=== PATIENT | male | born 1945 | race Caucasian/White ===

== ENCOUNTER 2016-11-21 01:20 | Inpatient (IN) | payer MEDICARE, OTHER ==
[~2016-11-21] VITALS: Ht 172.7 cm; Wt 77.1 kg
[2016-11-21 02:30] VITALS: BP 164/71; PULSE 51; RESP 17; TEMP 97.6; O2SAT 98
[2016-11-21] MEDS ORDERED: RISP0.5T2 PO (04:42)
[2016-11-21] MEDS ORDERED: LORA-373 PO (04:43)
[2016-11-21 05:36] VITALS: BP 126/78; PULSE 68; RESP 20; TEMP 97.5; O2SAT 98
[2016-11-21] MEDS: LOSARTAN 50 MG TAB PO SCH (09:38)
[2016-11-21] MEDS: PANTOPRAZOLE SOD 40 MG DELAYED RELEASE TAB PO SCH (09:38)
[2016-11-21] MEDS: FLUoxetine HCL 10 MG CAP PO SCH (09:46)
[2016-11-21] MEDS ORDERED: ALUMINUM/MAGNESIUM/SIMETH 30 ML CUP PO PRN (11:15)
--- NOTE | 2016-11-21 11:25 | HHI.HP ---
Provisional Diagnosis Admission Date Nov 21, 2016 at 01:20 [place] I. Mood disorder F 39 Certification of Person's Competence To Provide Express and Informed Consent I have personally examined Dell Martin , a person being served at [facility] on, Nov 21, 2016 11:13. Express and informed consent means consent voluntarily given in writing, by a competent person, after sufficient explanation and disclosure of the subject matter involved to enable the person to make a knowing and willful decision without any element of force, fraud, deceit, duress, or other form of constraint or coercion. This person is 18 years of age or older, is not now known to be incompetent to consent to treatment with a guardian advocate, and does not have a health care surrogate or proxy currently making medical treatment decisions. I have found this person to be one of the following: [] Competent to provide express and informed consent, as defined above, for voluntary admission to this facility and is competent to provide express and informed consent for treatment. He/she has the consistent capacity to make well reasoned, willful, and knowing decisions concerning his or her medical or mental health treatment. The person fully and consistently understands the purpose of the admission for examination/placement and is fully capable of personally exercising all rights assured under [place] [] Incompetent to provide express and informed consent to voluntary admission, and this is incompetent to provide express and informed consent to treatment. The person must be transferred to involuntary status and a petition for a guardian advocate filed with the Circuit Court. [X] Refusing to provide express and informed consent to voluntary admission but is competent to provide express and informed consent for treatment. The person must be discharged or transferred to involuntary status. Form shall be completed within 24 hours of a person's arrival at the receiving facility and filed in the clinical record of each person: 1. Admitted on a voluntary basis 2. Permitted to provide express and informed consent to his/her own treatment 3. Allowed to transfer from involuntary to voluntary status 4. Prior to permitting a person to consent to his or her own treatment after having been previously found incompetent to consent to treatment. History of Present Illness Capacity: Has Capacity HPI Patient is a [age] white male who initially went to [facility] complaining of depression suicidal ideation was Oneill acted at that facility, medically cleared at that facility and transported here under the Oneill act signed by AN illegible signature stating depression suicidal ideation. Depakote level at that facility 45.6, urine toxicology negative. At the present time patient sitting quietly in his room on 2500 he is alert oriented in all 4 spheres white male given the history of a multiple year problems with mood disorders being seen by various psychiatrists is has various hospitalizations some more recently. He sees a doctor ANDREIA the past 3 years within the past few months he has been changed from Trileptal and Cymbalta to Depakote and Prozac, he is also had vague perceptual problems has been on Respinol though he denies voices or visions at the present time. He is noted though increased anxiety depression with this of vague suicidal ideation to the point recalled friend of his in [place] who came down to visit leading to these events. At the present time patient history of suicidal ideation stating he would take the suicide pill if offered. He denies alcohol or drug use with this states the past significant some vague voices but denies voices at this time. Patient is single at this time does have an adult daughter that he does have her relationship with. There is a strong history mental health issues in his family his father committed suicide at a young age. He does have a sibling that may have some substance abuse issues also. He denies any physical and/or sexual abuse. 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 Management patient does meet criteria for involuntary psychiatric hospitalization at this time. I'll do first opinion requests a second opinion. I feel patient does have capacity to make decisions concerning treatment. We' ll continue his Depakote and Prozac an existing dosages we'll discontinue his Respinol add Abilify 5 mg the morning we will decrease his Ativan 2.5 mg twice a day when necessary check Depakote level over in the morning we will of hospitalist check his his medical condition also. Hopeless to be fairly short stay and was returned to his home to follow-up with his outpatient psychiatrist Review of Systems Except as stated in HPI: all other systems reviewed are Neg Past Psych History Psychological trauma history Denies physical or sexual abuse Violence risk - others (6 mos) Low Violence risk - self (6 mos) Actively suicidal Substance Abuse History Drugs/Alcohol past 12 months Denies Past Family Social History Uncoded Allergies: no know allergies (Allergy, 11/21/16) Past Medical History Patient medically cleared for [facility] Discontinued Reported Medications Lorazepam 0.5 Mg Tab0.5 Mg PO Q8H PRN (ANXIETY) Ref 0 11/21/16 Risperidone 0.5 Mg Tab0.5 Mg PO HS #30 TAB Ref 0 11/21/16 Current Medications Medications (Trade) Dose Ordered Sig/Zuleima Route Start Time Stop Time Status Last Admin (PROzac) 30 mg DAILY PO 11/21/16 09:00 11/21/16 09:46 (Cozaar) 50 mg DAILY PO 11/21/16 09:00 11/21/16 09:38 (Protonix) 40 mg DAILY PO 11/21/16 09:00 11/21/16 09:38 (Depakote Er) 500 mg HS PO 11/21/16 21:00 Family History Patient's father committed suicide mother had some type of mental health issues also though she lived to be Social History Patient single living by himself has an adult daughter Patient's Strengths (min. 2) Patient verbal they will express himself cooperative Physical Exam Patient seen screened for [facility] emergency department exam reviewed and agreed with vital signs vital signs blood pressure 126/78 pulse 68 respirations 20 Vital Signs Vital Signs Date Time Temp Pulse Resp B/P Pulse Ox O2 Delivery O2 Flow Rate FiO2 11/21/16 05:36 97.5 68 20 126/78 98 Mental Status Examination Alert oriented cooperative thin slender white male appears stated age sitting calmly with us with fair eye contact Appearance Clean neatly Speech: Unremarkable, Slow Orientation: x3 Memory: Unremarkable Thought Process: Logical Thought Content: Unremarkable, Obsessions (mildly) Hallucination Type: None Attention and Concentration: Good Suicidal Ideation: Yes (his active suicidal ideation would consider taking the suicide pill) Previous Suicide Attempts: No Homicidal Ideation: No Previous Homicide Attempts: No Insight: Fair Judgement: WNL Affect: Other (decreased range intensity) Mood: Euthymic (somewhat dysphoric and restricted) Motor Activity: Normal gait Assessment & Plan Problem List: (1) Mood disorder ICD Code: F39 Assessment & Plan Estimated LOS: 3-5 days patient doesn't meet criteria for acute inpatient consultation under the Oneill act I'll do first opinion requests second opinion. Will do medication adjustments as mentioned above hopefully if this will be a short stay return to his home and private psychiatrist Discharge Planning To be determined Request HC Surrog/Guard Advoc?: No Dada Novak MD Nov 21, 2016 11:25
[2016-11-21] MEDS: ARIPiprazole 5 MG TAB PO SCH (12:30)
[2016-11-21] MEDS: LORazepam 0.5 MG TAB PO PRN (12:30)
[2016-11-21] MEDS: hydrOXYzine HCL 50 MG TAB PO PRN (16:10)
[2016-11-21 18:41] VITALS: BP 167/93; PULSE 63; RESP 18; TEMP 98.2; O2SAT 99
[2016-11-21] MEDS: ACETAMINOPHEN 325 MG TAB PO PRN (18:47)
[2016-11-21] MEDS: DIVALPROEX SODIUM E.R. 500 MG TAB PO SCH (20:34)
[2016-11-21] MEDS: diphenhydrAMINE HCL 50 MG CAP PO PRN (20:43)
[2016-11-22 06:46] VITALS: BP 145/76; PULSE 61; RESP 18; TEMP 97.7; O2SAT 97
[2016-11-22 07:53] LABS: ANION GAP 8 MEQ/L (5-15); BICARBONATE 27.2 MEQ/L (21.0-32.0); BLOOD UREA NITROGEN 15 MG/DL (7-18); CHLORIDE 103 MEQ/L (98-107); GLOMERULAR FILTRATION RATE 90 ML/MIN (>89); HDL CHOLESTEROL 48.7 MG/DL (40.0-60.0); LDL CHOLESTEROL 68 MG/DL (0-99); POTASSIUM 3.8 MEQ/L (3.5-5.1); SODIUM (NA) 138 MEQ/L (136-145)
[2016-11-22] MEDS: ARIPiprazole 5 MG TAB PO SCH (09:00)
[2016-11-22] MEDS: FLUoxetine HCL 10 MG CAP PO SCH (09:48)
[2016-11-22] MEDS: LOSARTAN 50 MG TAB PO SCH (09:48)
[2016-11-22] MEDS: PANTOPRAZOLE SOD 40 MG DELAYED RELEASE TAB PO SCH (09:48)
[2016-11-22] MEDS: ACETAMINOPHEN 325 MG TAB PO PRN ×3 (10:18→21:22)
[2016-11-22 12:59] LABS: HEMOGLOBIN A1b 1.6 %; HEMOGLOBIN Ao 85.3 %; HEMOGLOBIN LA1C 1.9 %; HEMOGLOBIN P3 4.1 %
[2016-11-22] MEDS: LORazepam 0.5 MG TAB PO PRN (13:34)
[2016-11-22] MEDS: hydrOXYzine HCL 50 MG TAB PO PRN ×2 (13:34→18:48)
--- NOTE | 2016-11-22 13:36 | PD.CONS ---
HPI Service [facility] Consult Requested By Psychiatry team Reason for Consult Medical management Primary Care Physician No Primary Care Physician Diagnoses: History of Present Illness Patient is a 71-year-old white male who came in as a transfer from [facility] for depression and suicidal ideation. He was admitted to inpatient psychiatry unit under Oneill act for further evaluation. Consulted for medical management. Patient seen today. States he is doing well. Reports his major problem is medication adjustment for his psychological problems. Reports he has hypertension, and prediabetes but never started on medication for diabetes. He is taking losartan 50 mg daily but does not know if it is enough to control his blood pressure. He also reports GERD were and he takes Protonix for it daily. Denies pain and discomfort. Denies SOB/ dyspnea. Denies chest pain, palpitations, headaches, dizziness. Denies fevers, chills, n/v/d. Review of Systems Constitutional: DENIES: Fever, Chills, Change in appetite Endocrine: DENIES: Heat/cold intolerance Eyes: DENIES: Blurred vision, Eye pain Other Negative except for what is noted on history of present illness. Past Family Social History Allergies: Uncoded Allergies: no know allergies (Allergy, Unknown, 11/21/16) Past Medical History Hypertension GERD Prediabetes Skin cancer basal cell Past Surgical History Rhinoplasty Inguinal hernia repair Cholecystectomy Anal fissure repair Reported Medications Lorazepam 0.5 mg Risperidone 0.5 mg Losartan 50 mg Active Ordered Medications Current Medications Medications (Trade) Dose Ordered Sig/Zuleima Route Start Time Stop Time Status Last Admin (PROzac) 30 mg DAILY PO 11/21/16 09:00 11/22/16 09:48 (Cozaar) 50 mg DAILY PO 11/21/16 09:00 11/22/16 09:48 (Protonix) 40 mg DAILY PO 11/21/16 09:00 11/22/16 09:48 (Depakote Er) 500 mg HS PO 11/21/16 21:00 11/21/16 20:34 (Benadryl) 50 mg HS PRN PO 11/21/16 11:15 11/21/16 20:43 (Tylenol) 650 mg Q4H PRN PO 11/21/16 11:15 11/22/16 10:18 (Milk Of Magnesia Liq) 30 ml DAILY PRN PO 11/21/16 11:15 (Mag-Al Plus Susp Liq) 30 ml Q6H PRN PO 11/21/16 11:15 (Atarax) 50 mg Q6H PRN PO 11/21/16 11:15 11/22/16 13:34 (Abilify) 5 mg DAILY PO 11/21/16 12:00 11/21/16 12:30 (Ativan) 0.5 mg Q12HR PRN PO 11/21/16 11:15 11/22/16 13:34 Family History Father heart problem, aortic aneurysm Mother hypertension Sister skin cancer Social History Patient is . He has 2 daughters in [place]. Denies alcohol use Denies tobacco use Denies illicit drug use Physical Exam Vital Signs Vital Signs Date Time Temp Pulse Resp B/P Pulse Ox O2 Delivery O2 Flow Rate FiO2 11/22/16 06:46 97.7 61 18 145/76 97 11/21/16 19:47 20 11/21/16 18:41 98.2 63 18 167/93 99 Physical Exam GENERAL: This is a well-nourished, well-developed patient, in no apparent distress. SKIN: No rashes, ecchymoses or lesions. Cool and dry. HEAD: Atraumatic. Normocephalic. No temporal or scalp tenderness. EYES: Pupils equal round and reactive. No scleral icterus. No injection or drainage. ENT: Nose without bleeding. Throat without erythema. Uvula midline. Airway patent. NECK: Trachea midline. No JVD or lymphadenopathy. Supple, nontender, no meningeal signs. CARDIOVASCULAR: Regular rate and rhythm without murmurs, gallops, or rubs. RESPIRATORY: Clear to auscultation. Breath sounds equal bilaterally. No wheezes , rales, or rhonchi. GASTROINTESTINAL: Abdomen soft, non-tender, nondistended. No hepato-splenomegaly , or palpable masses. No guarding. Bowel sounds active 4 MUSCULOSKELETAL: Extremities without clubbing, cyanosis, or edema. No joint tenderness, effusion, or edema noted. No calf tenderness. Negative Homans sign bilaterally. NEUROLOGICAL: Awake and alert. Motor and sensory grossly within normal limits. Focal neuro deficit Normal speech. Laboratory Laboratory Tests Test 11/22/16 06:39 Sodium Level 138 Potassium Level 3.8 Chloride Level 103 Carbon Dioxide Level 27.2 Anion Gap 8 Blood Urea Nitrogen 15 Creatinine 0.84 Estimat Glomerular Filtration 90 Rate Random Glucose 93 Calcium Level 8.7 Triglycerides Level 71 Cholesterol Level 131 LDL Cholesterol 68 HDL Cholesterol 48.7 Cholesterol/HDL Ratio 2.68 Valproic Acid (Depakene) Level 31 Result Diagram: 11/22/16 0639 Assessment and Plan Problem List: (1) Mood disorder ICD Code: F39 Status: Acute (2) Pre-diabetes ICD Code: R73.03 Status: Acute (3) Diabetes mellitus screening ICD Code: Z13.1 Status: Acute (4) HTN (hypertension) ICD Code: I10 Status: Chronic Assessment and Plan Patient is 71-year-old male who came in to the hospital under Oneill transferred from [facility] for suicidal ideation and medication adjustments. Now admitted to inpatient psychiatry unit for further evaluation. Consulted for medical management. Suicidal ideation, mood disorder - managed by psychiatry team HTN - losartan 50 mg by mouth daily, clonidine when necessary - Monitor BP trend. Improving BP today 145/76 Prediabetes, DM screening - Hemoglobin A1c 5.5 - Patient without diabetes - Continue with regular diet Labs have been reviewed BMP unremarkable, lipid profile within normal, hemoglobin A1C 5.5 Thank you for this consultation. We will follow patient with you. Written by Valorie Altman, acting as scribe for Dr. Saldana on 11/22/16 at 15: 06. The documentation accurately reflects the work performed [id number] by me on at 15:06. Code Status Full code Discussed Condition With Patient, nursing Valorie Adame Nov 22, 2016 13:36 George Phillips MD Dec 02, 2016 02:07
--- NOTE | 2016-11-22 14:43 | PD.CONS ---
Provisional Diagnosis Admission Date Nov 21, 2016 at 01:20 [place] I. 1. Mood disorder [place] II. Deferred [place] V. GAF is 30 presently History of Present Illness Service Psychiatry Consult Requested By Dr. Novak Reason for Consult Second opinion Primary Care Physician No Primary Care Physician HPI From Dr. Novak's H&P: Patient is a [age] white male who initially went to [facility] complaining of depression suicidal ideation was Oneill acted at that facility, medically cleared at that facility and transported here under the Oneill act signed by AN illegible signature stating depression suicidal ideation. Depakote level at that facility 45.6, urine toxicology negative. At the present time patient sitting quietly in his room on 2500 he is alert oriented in all 4 spheres white male given the history of a multiple year problems with mood disorders being seen by various psychiatrists is has various hospitalizations some more recently. He sees a doctor ANDREIA the past 3 years within the past few months he has been changed from Trileptal and Cymbalta to Depakote and Prozac, he is also had vague perceptual problems has been on Respinol though he denies voices or visions at the present time. He is noted though increased anxiety depression with this of vague suicidal ideation to the point recalled friend of his in [place] who came down to visit leading to these events. At the present time patient history of suicidal ideation stating he would take the suicide pill if offered. He denies alcohol or drug use with this states the past significant some vague voices but denies voices at this time. Patient is single at this time does have an adult daughter that he does have her relationship with. There is a strong history mental health issues in his family his father committed suicide at a young age. He does have a sibling that may have some substance abuse issues also. He denies any physical and/or sexual abuse. 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 I'll do first opinion requests a second opinion. I feel patient does have capacity to make decisions concerning treatment. We' ll continue his Depakote and Prozac an existing dosages we'll discontinue his Respinol add Abilify 5 mg the morning we will decrease his Ativan 2.5 mg twice a day when necessary check Depakote level over in the morning we will of hospitalist check his his medical condition also. Hopeless to be fairly short stay and was returned to his home to follow-up with his outpatient psychiatrist On my evaluation today: Patient seen and examined. Chart reviewed. Case discussed with RN. Patient is newly transferred to 2700 unit, although he was no behavioral problem on the 2500 unit from which he came. On my examination today, the patient is exceedingly anxious, bordering on hysterical. It is difficult to get much of a meaningful history from the patient for this reason. Nonetheless, he is able to say he went into [facility] because he was struggling with ego dystonic intrusive thoughts to hurt nonspecific others. He denies any urge to hurt other people, nor does he have any specific victim in mind. No suicidal ideation. No AVH. Patient is somewhat dysphoric but I suspect this is situational. Past psychiatric history: Patient reports a prior diagnosis of bipolar disorder type II. He reports that he follows with Dr. Schreiber. He reports that he was voluntarily psychiatrically hospitalized in 2012. He denies a history of suicide attempts. Family history: Patient reports that his father struggled with depression throughout his life and completed suicide at age 72. His mother had bipolar illness. His sister also has some sort of mental illness diagnosis. Chemical dependency history: Patient denies a history of abuse of drugs or alcohol. Social history: Patient begins to say that he lives alone with a dog before devolving into a state of extreme anxiety related to his circumstance on the 2700 unit. It is difficult to get much in the way of meaningful social history for this reason. Review of Systems Other No reported physical complaints today. Past Family Social History Uncoded Allergies: no know allergies (Allergy, Unknown, 11/21/16) Past Medical History See electronic medical record Discontinued Reported Medications Lorazepam 0.5 Mg Tab0.5 Mg PO Q8H PRN (ANXIETY) Ref 0 11/21/16 Risperidone 0.5 Mg Tab0.5 Mg PO HS #30 TAB Ref 0 11/21/16 Current Medications Medications (Trade) Dose Ordered Sig/Zuleima Route Start Time Stop Time Status Last Admin (PROzac) 30 mg DAILY PO 11/21/16 09:00 11/22/16 09:48 (Cozaar) 50 mg DAILY PO 11/21/16 09:00 11/22/16 09:48 (Protonix) 40 mg DAILY PO 11/21/16 09:00 11/22/16 09:48 (Depakote Er) 500 mg HS PO 11/21/16 21:00 11/21/16 20:34 (Benadryl) 50 mg HS PRN PO 11/21/16 11:15 11/21/16 20:43 (Tylenol) 650 mg Q4H PRN PO 11/21/16 11:15 11/22/16 10:18 (Milk Of Magnesia Liq) 30 ml DAILY PRN PO 11/21/16 11:15 (Mag-Al Plus Susp Liq) 30 ml Q6H PRN PO 11/21/16 11:15 (Atarax) 50 mg Q6H PRN PO 11/21/16 11:15 11/22/16 13:34 (Abilify) 5 mg DAILY PO 11/21/16 12:00 11/21/16 12:30 (Ativan) 0.5 mg Q12HR PRN PO 11/21/16 11:15 11/22/16 13:34 Family History See above Social History See above Patient's Strengths (min. 2) Intelligent. Verbally fluent. Physical Exam A physical examination was completed at the outside hospital and the patient was medically cleared. On my examination today, the patient appears to be in no acute physical distress. No abnormal motor movements noted except he is somewhat generally tremulous secondary to anxiety. Labs and vital signs reviewed. Vital Signs Vital Signs Date Time Temp Pulse Resp B/P Pulse Ox O2 Delivery O2 Flow Rate FiO2 11/22/16 06:46 97.7 61 18 145/76 97 Lab Results Item Value Date Time Sodium Level 138 MEQ/L 11/22/16 0639 Potassium Level 3.8 MEQ/L 11/22/16 0639 Chloride Level 103 MEQ/L 11/22/16 0639 Carbon Dioxide Level 27.2 MEQ/L 11/22/16 0639 Blood Urea Nitrogen 15 MG/DL 11/22/16 0639 Creatinine 0.84 MG/DL 11/22/16 0639 Hemoglobin A1c 5.5 % 11/22/16 0639 Valproic Acid (Depakene) Level 31 MCG/ML L 11/22/16 0639 Mental Status Examination Speech: Pressured (due to anxiety) Orientation: x3 Memory: Unremarkable Thought Process: Logical Thought Content: Obsessions Hallucination Type: None Attention and Concentration: Good Suicidal Ideation: No Previous Suicide Attempts: No Homicidal Ideation: No (but ego dystonic thoughts to hurt others) Previous Homicide Attempts: No Insight: Fair Judgement: WNL Affect: Anxious (extreme) Mood: Anxious Assessment & Plan Problem List: (1) Mood disorder ICD Code: F39 Assessment & Plan Given the circumstances of patient's presentation here and his presentation on my examination today, I concur with Dr. Novak that the patient meets criteria for involuntary psychiatric hospitalization under the Oneill act. I completed the second opinion paperwork. Patient is presently extremely anxious on the 2700 unit. I have discussed the case with Dr. Novak who concurs it is most appropriate to have the patient returned to the 2500 unit, and I have placed this order. Discharge Planning Per Dr. Novak. Request [facility]/Guard Advoc?: No Daniel Sosa MD Nov 22, 2016 14:42
--- NOTE | 2016-11-22 15:03 | HHI.PYPN ---
Subjective Remarks Patient discussed with treatment team and miss Anna Pittman patient's friend and power of ball rolling machine operator lives in [place]. Was come down to help with him. Patient seen on unit prior to the decision to attempt to transfer him to 2700 unit. And that time he was anxious nervous when somewhat afraid and vigilant. After I spoke with him the initial decision was made for this transfer. Was also seen by Dr. Sosa for second opinion petition assessment. He noted and I did agree that this appeared to be a somewhat inappropriate transfer from 25[address] 700 unit we did discuss this with the nursing staff and they agree that we should cancel the transfer and to the patient 2500 units will be continued monitored by us Review of Systems Except as stated in HPI: all other systems reviewed are Neg Objective Alert: Yes [place]: Person, Place, Date Mood: Agitated, Anxious Affect: Labile Memory Intact: Comment Hallucinations: Other (poor) Delusions: No Delusion Type: Other (vigilant) Suicidal: Ideation (denies) Homicidal: Ideation (denies) Insight/Judgement Poor Labs Test 11/22/16 06:39 Sodium Level 138 MEQ/L Potassium Level 3.8 MEQ/L Chloride Level 103 MEQ/L Carbon Dioxide Level 27.2 MEQ/L Anion Gap 8 MEQ/L Blood Urea Nitrogen 15 MG/DL Creatinine 0.84 MG/DL Estimat Glomerular Filtration 90 ML/MIN Rate Random Glucose 93 MG/DL Hemoglobin A1c 5.5 % Calcium Level 8.7 MG/DL Triglycerides Level 71 MG/DL Cholesterol Level 131 MG/DL LDL Cholesterol 68 MG/DL HDL Cholesterol 48.7 MG/DL Cholesterol/HDL Ratio 2.68 RATIO Valproic Acid (Depakene) Level 31 MCG/ML Vitals/IOs Vital Signs Date Time Temp Pulse Resp B/P Pulse Ox O2 Delivery O2 Flow Rate FiO2 11/22/16 06:46 97.7 61 18 145/76 97 Assessment & Plan Problem List: (1) Mood disorder ICD Code: F39 Assessment & Plan Estimated LOS: days patient depressed anxious somewhat irritable at this time, did refuse his Abilify this morning we'll continue to encourage compliance with medication Justification for Cont. Inpt. At this time there patient may severely decompensate if placed in a lower level of care Discharge Planning To be determined Request HC Surrog/Guard Advoc?: No Dada Novak MD Nov 22, 2016 15:03
[2016-11-22 18:39] VITALS: BP 158/77; PULSE 53; RESP 18; TEMP 98; O2SAT 97
[2016-11-22] MEDS: DIVALPROEX SODIUM E.R. 500 MG TAB PO SCH (21:21)
[2016-11-22] MEDS: diphenhydrAMINE HCL 50 MG CAP PO PRN (21:22)
[2016-11-23 05:31] VITALS: BP 156/75; PULSE 60; RESP 18; TEMP 98.4; O2SAT 97
[2016-11-23] MEDS: MAGNESIUM HYDROXIDE SUSP 30 ML CUP PO PRN (06:26)
[2016-11-23] MEDS: LORazepam 0.5 MG TAB PO PRN ×2 (09:27→21:31)
[2016-11-23] MEDS: LOSARTAN 50 MG TAB PO SCH (09:27)
[2016-11-23] MEDS: PANTOPRAZOLE SOD 40 MG DELAYED RELEASE TAB PO SCH (09:27)
[2016-11-23] MEDS: FLUoxetine HCL 10 MG CAP PO SCH (09:28)
[2016-11-23] MEDS: ARIPiprazole 5 MG TAB PO SCH (09:28)
--- NOTE | 2016-11-23 11:07 | HHI.PYPN ---
Subjective Remarks Patient seen in room with nurse Deya, patient complains of "nervous wreck" while patient denies suicidality homicidality or voices he states he has thoughts at times wanting to hurt himself or hurt others. Though he has some reality testing related to it. Patient is markedly anxious with us with his speech showing some significant stuttering. Is somewhat agitated. Patient Depakote level drawn yesterday came back at 31 will increase Depakote to 750 mg at bedtime check blood level on 11/26, we'll continue other medications no change this component of dependency and passive aggressiveness with this gentleman. He appears to be relying significant his lady friend from [place] to find a placement and to do various responsibilities for him Review of Systems Except as stated in HPI: all other systems reviewed are Neg Objective Alert: Yes [place]: Person, Place, Date Mood: Agitated, Anxious Affect: Labile Memory Intact: Comment Hallucinations: Other (poor) Delusions: No Delusion Type: Other (vigilant) Suicidal: Ideation (denies) Homicidal: Ideation (denies) Insight/Judgement Poor Vitals/IOs Vital Signs Date Time Temp Pulse Resp B/P Pulse Ox O2 Delivery O2 Flow Rate FiO2 11/23/16 05:31 98.4 60 18 156/75 97 Intake and Output 11/22/16 11/22/16 11/23/16 08:00 16:00 00:00 Intake Total 480 ml 990 ml Balance 480 ml 990 ml Assessment & Plan Problem List: (1) Mood disorder ICD Code: F39 Assessment & Plan Estimated LOS: days patient continues depressed and anxious with vague thoughts of suicide and/or homicide Justification for Cont. Inpt. At this time patient would significantly decompensated placed in a lower level of care Discharge Planning To be determined Request HC Surrog/Guard Advoc?: No Dada Novak MD Nov 23, 2016 11:07
[2016-11-23] MEDS: hydrOXYzine HCL 50 MG TAB PO PRN (15:00)
[2016-11-23 19:50] VITALS: BP 152/80; PULSE 72; RESP 18; TEMP 98.8; O2SAT 97
[2016-11-23] MEDS: diphenhydrAMINE HCL 50 MG CAP PO PRN (21:31)
[2016-11-23] MEDS: DIVALPROEX SODIUM E.R. 250 MG TAB PO SCH (21:32)
[2016-11-24] MEDS: ACETAMINOPHEN 325 MG TAB PO PRN ×2 (01:21→10:57)
[2016-11-24] MEDS: hydrOXYzine HCL 50 MG TAB PO PRN ×3 (05:24→22:29)
[2016-11-24 05:32] VITALS: BP 115/58; PULSE 79; RESP 16; TEMP 97.8; O2SAT 100
[2016-11-24] MEDS: PANTOPRAZOLE SOD 40 MG DELAYED RELEASE TAB PO SCH (09:27)
[2016-11-24] MEDS: LOSARTAN 50 MG TAB PO SCH (09:28)
[2016-11-24] MEDS: ARIPiprazole 5 MG TAB PO SCH (09:28)
[2016-11-24] MEDS: FLUoxetine HCL 10 MG CAP PO SCH (09:47)
--- NOTE | 2016-11-24 10:49 | HHI.PYPN ---
Subjective Remarks Patient seen in day room the floor staff, patient continues to focus on his "anxiety" patient somewhat tremulous with this feels quite involved with discussing his anxiety. He does acknowledge the lifelong babbles with this. But also question his efforts at counseling perhaps attempting to gain insight into this. In any event for now we'll continue medication management and observation. We'll consider transferring the patient to the higher functioning 2600 unit. He may benefit from the socialization and treatment there as opposed to the 2500 unit Review of Systems Except as stated in HPI: all other systems reviewed are Neg Objective Alert: Yes [place]: Person, Place, Date Mood: Agitated, Anxious Affect: Labile Memory Intact: Comment Hallucinations: Other (poor) Delusions: No Delusion Type: Other (vigilant) Suicidal: Ideation (denies) Homicidal: Ideation (denies) Insight/Judgement Poor Vitals/IOs Vital Signs Date Time Temp Pulse Resp B/P Pulse Ox O2 Delivery O2 Flow Rate FiO2 11/24/16 05:32 97.8 79 16 115/58 100 Intake and Output 11/23/16 11/23/16 11/24/16 08:00 16:00 00:00 Intake Total 960 ml 300 ml Balance 960 ml 300 ml Assessment & Plan Problem List: (1) Mood disorder ICD Code: F39 Assessment & Plan Estimated LOS: days patient continues anxious nervous somewhat vigilant. Compliant medications Justification for Cont. Inpt. Patient would significantly decompensated placed in a lower level of care Discharge Planning To be determined Request HC Surrog/Guard Advoc?: No Dada Novak MD Nov 24, 2016 10:49
[2016-11-24] MEDS: LORazepam 0.5 MG TAB PO PRN (14:25)
[2016-11-24] MEDS ORDERED: OLANZapine IM 10 MG VIAL IM ONE (16:00)
[2016-11-24 19:41] VITALS: BP 158/85; PULSE 61; RESP 18; TEMP 97.3; O2SAT 99
[2016-11-24] MEDS: DIVALPROEX SODIUM E.R. 250 MG TAB PO SCH (20:24)
[2016-11-24] MEDS: MAGNESIUM HYDROXIDE SUSP 30 ML CUP PO PRN (21:28)
[2016-11-24] MEDS: diphenhydrAMINE HCL 50 MG CAP PO PRN (21:28)
[2016-11-25 06:35] VITALS: BP 126/63; PULSE 55; RESP 16; TEMP 98.1; O2SAT 97
[2016-11-25] MEDS: FLUoxetine HCL 10 MG CAP PO SCH (09:24)
[2016-11-25] MEDS: LOSARTAN 50 MG TAB PO SCH (09:25)
[2016-11-25] MEDS: PANTOPRAZOLE SOD 40 MG DELAYED RELEASE TAB PO SCH (09:25)
[2016-11-25] MEDS: ARIPiprazole 5 MG TAB PO SCH (09:25)
[2016-11-25] MEDS: hydrOXYzine HCL 50 MG TAB PO PRN ×2 (11:02→22:21)
--- NOTE | 2016-11-25 12:18 | HHI.PYPN ---
Subjective Remarks Patient seen in day room floor staff, his anxiety, somewhat vaguely somatic with this. he does denies suicidality. continues also some focusing on placement issues Review of Systems Except as stated in HPI: all other systems reviewed are Neg Objective Alert: Yes [place]: Person, Place, Date Mood: Agitated, Anxious Affect: Labile Memory Intact: Comment Hallucinations: Other (poor) Delusions: No Delusion Type: Other (vigilant) Suicidal: Ideation (denies) Homicidal: Ideation (denies) Insight/Judgement Very poor Vitals/IOs Vital Signs Date Time Temp Pulse Resp B/P Pulse Ox O2 Delivery O2 Flow Rate FiO2 11/25/16 06:35 98.1 55 16 126/63 97 Intake and Output 11/24/16 11/24/16 11/25/16 08:00 16:00 00:00 Intake Total 1560 ml 1080 ml Balance 1560 ml 1080 ml Assessment & Plan Problem List: (1) Mood disorder ICD Code: F39 Assessment & Plan Estimated LOS: days patient continues anxious and depressed, compliant medications, Justification for Cont. Inpt. At this time patient would decompensate with placed a lower level of care Discharge Planning To be determined Request HC Surrog/Guard Advoc?: No Dada Novak MD Nov 25, 2016 12:18
[2016-11-25] MEDS: LORazepam 0.5 MG TAB PO PRN (15:35)
[2016-11-25 19:28] VITALS: BP 171/75; PULSE 54; RESP 16; TEMP 98.8; O2SAT 97
[2016-11-25] MEDS: DIVALPROEX SODIUM E.R. 250 MG TAB PO SCH (20:00)
[2016-11-25] MEDS: ACETAMINOPHEN 325 MG TAB PO PRN (20:00)
[2016-11-25] MEDS: diphenhydrAMINE HCL 50 MG CAP PO PRN (21:19)
[2016-11-26] MEDS: LORazepam 0.5 MG TAB PO PRN ×2 (02:38→21:27)
[2016-11-26 06:00] VITALS: BP 149/71; PULSE 60; RESP 17; TEMP 98.1; O2SAT 96
[2016-11-26] MEDS: FLUoxetine HCL 10 MG CAP PO SCH (09:29)
[2016-11-26] MEDS: PANTOPRAZOLE SOD 40 MG DELAYED RELEASE TAB PO SCH (09:29)
[2016-11-26] MEDS: LOSARTAN 50 MG TAB PO SCH (09:29)
[2016-11-26] MEDS: ARIPiprazole 5 MG TAB PO SCH (09:29)
[2016-11-26] MEDS: hydrOXYzine HCL 50 MG TAB PO PRN (09:42)
--- NOTE | 2016-11-26 12:32 | HHI.PYPN ---
Subjective Remarks Patient seen in room with counselor Vandana, medical student Marie, and patient's female friend from [place]. Patient continues anxious and nervous though showing some increased focus. He is excited about being transmitted 2600 refills will be quieter and more counseling, also We did I will continue being is physician. He does denies suicidality homicidality at this time. Though acknowledges continuing to have the flitting thoracis of suicide and homicide. For now continue treatment Review of Systems Except as stated in HPI: all other systems reviewed are Neg Objective Alert: Yes [place]: Person, Place, Date Mood: Agitated, Anxious Affect: Labile Memory Intact: Comment Hallucinations: Other (poor) Delusions: No Delusion Type: Other (vigilant) Suicidal: Ideation (denies) Homicidal: Ideation (denies) Insight/Judgement Poor Labs Test 11/26/16 05:50 Valproic Acid (Depakene) Level 63 MCG/ML Vitals/IOs Vital Signs Date Time Temp Pulse Resp B/P Pulse Ox O2 Delivery O2 Flow Rate FiO2 11/26/16 06:00 98.1 60 17 149/71 96 Intake and Output 11/25/16 11/25/16 11/26/16 08:00 16:00 00:00 Intake Total 240 ml 1080 ml Balance 240 ml 1080 ml Assessment & Plan Problem List: (1) Mood disorder ICD Code: F39 Assessment & Plan Estimated LOS: days patient remains anxious concerned needy, with continuing fleeting suicidal/homicidal thoughts. Patient be transferred to 2600 Justification for Cont. Inpt. At this time patient would significantly decompensated if placed in the lower level of care Discharge Planning To be determined Request HC Surrog/Guard Advoc?: No Dada Novak MD Nov 26, 2016 12:32
[2016-11-26 19:32] VITALS: BP 138/74; PULSE 55; RESP 18; TEMP 98.7; O2SAT 98
[2016-11-26] MEDS: DIVALPROEX SODIUM E.R. 250 MG TAB PO SCH (20:20)
[2016-11-26] MEDS: diphenhydrAMINE HCL 50 MG CAP PO PRN (21:27)
[2016-11-27 05:13] VITALS: BP 134/64; PULSE 67; RESP 16; TEMP 98; O2SAT 97
[2016-11-27] MEDS: LOSARTAN 50 MG TAB PO SCH (09:04)
[2016-11-27] MEDS: FLUoxetine HCL 10 MG CAP PO SCH (09:04)
[2016-11-27] MEDS: ARIPiprazole 5 MG TAB PO SCH (09:04)
[2016-11-27] MEDS: PANTOPRAZOLE SOD 40 MG DELAYED RELEASE TAB PO SCH (09:04)
[2016-11-27] MEDS: LORazepam 0.5 MG TAB PO PRN ×2 (09:41→21:10)
--- NOTE | 2016-11-27 15:48 | HHI.PYPN ---
Subjective Remarks Patient was seen and case discussed with nursing. Patient describes his anxiety is subjectively improved. However during our interview he remains anxious with broken speech. Compliant with medications. Asking to have his nails trimmed. Denies any suicidal or homicidal ideations intent or plan. No guns Objective Alert: Yes [place]: Person, Place, Date Mood: Agitated, Anxious Affect: Labile Memory Intact: Comment Hallucinations: Other (poor) Delusions: No Delusion Type: Other (vigilant) Suicidal: Ideation (denies) Homicidal: Ideation (denies) Insight/Judgement Poor Vitals/IOs Vital Signs Date Time Temp Pulse Resp B/P Pulse Ox O2 Delivery O2 Flow Rate FiO2 11/27/16 05:13 98.0 67 16 134/64 97 Intake and Output 11/26/16 11/26/16 11/27/16 08:00 16:00 00:00 Intake Total 600 ml Balance 600 ml Assessment & Plan Problem List: (1) Mood disorder ICD Code: F39 Assessment & Plan Continue current treatment plan Justification for Cont. Inpt. Patient would decompensate in a less restrictive setting Request HC Surrog/Guard Advoc?: No Mikel Boyer DO Nov 27, 2016 15:48
[2016-11-27 19:00] VITALS: BP 158/76; PULSE 55; RESP 16; O2SAT 98
[2016-11-27] MEDS: DIVALPROEX SODIUM E.R. 250 MG TAB PO SCH (21:10)
[2016-11-27] MEDS: diphenhydrAMINE HCL 50 MG CAP PO PRN (21:10)
[2016-11-28 05:31] VITALS: BP 149/67; PULSE 70; RESP 16; TEMP 97.8; O2SAT 97
[2016-11-28] MEDS: FLUoxetine HCL 10 MG CAP PO SCH (08:49)
[2016-11-28] MEDS: ARIPiprazole 5 MG TAB PO SCH (08:49)
[2016-11-28] MEDS: LOSARTAN 50 MG TAB PO SCH (08:49)
[2016-11-28] MEDS: PANTOPRAZOLE SOD 40 MG DELAYED RELEASE TAB PO SCH (08:49)
[2016-11-28] MEDS: hydrOXYzine HCL 50 MG TAB PO PRN ×2 (11:00→20:54)
--- NOTE | 2016-11-28 15:06 | HHI.PYPN ---
Subjective Remarks Patient was seen and case discussed with nursing. Patient reports his anxiety is improved and is asking about discharge. His affect remains quite anxious however. Compliant with his medications. Behaving well on the unit. Nursing says he is anxious to make his voice heard about various requests. Compliant with medications Objective Alert: Yes [place]: Person, Place, Date Mood: Agitated, Anxious Affect: Labile Memory Intact: Comment Hallucinations: Other (poor) Delusions: No Delusion Type: Other (vigilant) Suicidal: Ideation (denies) Homicidal: Ideation (denies) Insight/Judgement Fair Vitals/IOs Vital Signs Date Time Temp Pulse Resp B/P Pulse Ox O2 Delivery O2 Flow Rate FiO2 11/28/16 05:31 97.8 70 16 149/67 97 Intake and Output 11/27/16 11/27/16 11/28/16 08:00 16:00 00:00 Intake Total 150 ml Balance 150 ml Assessment & Plan Problem List: (1) Mood disorder ICD Code: F39 Assessment & Plan Continue current treatment plan Justification for Cont. Inpt. Patient would decompensate in a less restrictive setting Request HC Surrog/Guard Advoc?: No Mikel Boyer DO Nov 28, 2016 15:06
[2016-11-28] MEDS: LORazepam 0.5 MG TAB PO PRN (15:28)
[2016-11-28 18:42] VITALS: BP 137/64; PULSE 50; RESP 16; O2SAT 95
[2016-11-28] MEDS: ACETAMINOPHEN 325 MG TAB PO PRN (20:54)
[2016-11-28] MEDS: DIVALPROEX SODIUM E.R. 250 MG TAB PO SCH (20:54)
[2016-11-28] MEDS: diphenhydrAMINE HCL 50 MG CAP PO PRN (20:54)
[2016-11-29 05:43] VITALS: BP 139/72; PULSE 57; RESP 17; TEMP 97.9; O2SAT 98
[2016-11-29] MEDS: PANTOPRAZOLE SOD 40 MG DELAYED RELEASE TAB PO SCH (08:46)
[2016-11-29] MEDS: LOSARTAN 50 MG TAB PO SCH (08:46)
[2016-11-29] MEDS: ARIPiprazole 5 MG TAB PO SCH (08:46)
[2016-11-29] MEDS: FLUoxetine HCL 10 MG CAP PO SCH (08:46)
[2016-11-29] MEDS: hydrOXYzine HCL 50 MG TAB PO PRN (14:20)
--- NOTE | 2016-11-29 15:59 | HHI.PYPN ---
Subjective Remarks Patient seen today in treatment team with medical student Ladonna, patient's female friend from [place]. Chart reviewed. Patient states he had a fairly good weekend those anxiety persists it is softened. We did discuss his need to take more responsibility for his behavior and his treatment. That the treatment has to transition to outpatient. Patient stated some anxiety about returning home with nobody there. We added that a referral to home health care could really help him with a psychiatric nurse coming in. Also referred to our support groups on Tuesday and afternoons. Patient denies suicidality homicidality voices or visions. He is also supported by his lady friend with the above recommendations. Thus today I will refer to home health care psychiatric nurse, referred to our support groups on Tuesday and , patient to follow-up with his own psychiatrist Dr. Schreiber, and his own counseled that he sees weekly also supply him with 1 month supply schedule meds Review of Systems Except as stated in HPI: all other systems reviewed are Neg Objective Alert: Yes [place]: Person, Place, Date Mood: Agitated, Anxious Affect: Labile Memory Intact: Comment Hallucinations: Other (poor) Delusions: No Delusion Type: Other (vigilant) Suicidal: Ideation (denies) Homicidal: Ideation (denies) Insight/Judgement Poor to fair Vitals/IOs Vital Signs Date Time Temp Pulse Resp B/P Pulse Ox O2 Delivery O2 Flow Rate FiO2 11/29/16 05:43 97.9 57 17 139/72 98 Intake and Output 11/28/16 11/28/16 11/29/16 08:00 16:00 00:00 Intake Total 150 ml Balance 150 ml Assessment & Plan Problem List: (1) Mood disorder ICD Code: F39 Assessment & Plan Estimated LOS: days will discharge patient tomorrow to his friend from [place] , with referral to home health care, our support groups Tuesday and , his own psychiatrist and his own counselor Justification for Cont. Inpt. We need arrangements for appropriate discharge plans patient to be discharged tomorrow Discharge Planning See above Request HC Surrog/Guard Advoc?: No Dada Novak MD Nov 29, 2016 15:59
[2016-11-29] MEDS: ACETAMINOPHEN 325 MG TAB PO PRN (16:44)
[2016-11-29 19:07] VITALS: BP 130/80; PULSE 49; RESP 18; TEMP 98.1; O2SAT 100
[2016-11-29] MEDS: LORazepam 0.5 MG TAB PO PRN (21:00)
[2016-11-29] MEDS: DIVALPROEX SODIUM E.R. 250 MG TAB PO SCH (21:00)
[2016-11-29] MEDS: diphenhydrAMINE HCL 50 MG CAP PO PRN (21:00)
[2016-11-30 05:51] VITALS: BP 124/70; PULSE 64; RESP 16; TEMP 97.6
[2016-11-30] MEDS: ARIPiprazole 5 MG TAB PO SCH (09:07)
[2016-11-30] MEDS: LOSARTAN 50 MG TAB PO SCH (09:07)
[2016-11-30] MEDS: FLUoxetine HCL 10 MG CAP PO SCH (09:07)
[2016-11-30] MEDS: PANTOPRAZOLE SOD 40 MG DELAYED RELEASE TAB PO SCH (09:07)
[2016-11-30] MEDS ORDERED: ARIP1TAB11 PO (11:14)
[2016-11-30] MEDS ORDERED: HYDR50TA94 PO (11:14)
[2016-11-30] MEDS ORDERED: PANT40TA3 PO (11:14)
[2016-11-30] MEDS ORDERED: FLUO-1 PO (11:14)
[2016-11-30] MEDS ORDERED: DIVA250ER PO (11:14)
[2016-11-30] MEDS ORDERED: COZA50TA PO (11:14)
--- NOTE | 2016-11-30 11:33 | HHI.DS ---
Psychiatry Discharge Summary Inpatient Psychiatric care?: Yes Advance Directive: No Reason Not Provided: WILL HAVE FRIEND BRING Mental Health AdvanceDirective: No Health Care Proxy: No Admission Admission Date Nov 21, 2016 at 01:20 Admission Diagnosis: (1) Mood disorder ICD Code: F39 Brief History From Dr. Novak's H&P: Patient is a [age] white male who initially went to [facility] complaining of depression suicidal ideation was [facility] acted at that facility, medically cleared at that facility and transported here under the [facility] act signed by AN illegible signature stating depression suicidal ideation. Depakote level at that facility 45.6, urine toxicology negative. At the present time patient sitting quietly in his room on 2500 he is alert oriented in all 4 spheres white male given the history of a multiple year problems with mood disorders being seen by various psychiatrists is has various hospitalizations some more recently. He sees a doctor ANDREIA the past 3 years within the past few months he has been changed from Trileptal and Cymbalta to Depakote and Prozac, he is also had vague perceptual problems has been on Respinol though he denies voices or visions at the present time. He is noted though increased anxiety depression with this of vague suicidal ideation to the point recalled friend of his in [place] who came down to visit leading to these events. At the present time patient history of suicidal ideation stating he would take the suicide pill if offered. He denies alcohol or drug use with this states the past significant some vague voices but denies voices at this time. Patient is single at this time does have an adult daughter that he does have her relationship with. There is a strong history mental health issues in his family his father committed suicide at a young age. He does have a sibling that may have some substance abuse issues also. He denies any physical and/or sexual abuse. 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 Management patient does meet criteria for involuntary psychiatric hospitalization at this time. I'll do first opinion requests a second opinion. I feel patient does have capacity to make decisions concerning treatment. We' ll continue his Depakote and Prozac an existing dosages we'll discontinue his Respinol add Abilify 5 mg the morning we will decrease his Ativan 2.5 mg twice a day when necessary check Depakote level over in the morning we will of hospitalist check his his medical condition also. Hopeless to be fairly short stay and was returned to his home to follow-up with his outpatient psychiatrist On my evaluation today: Patient seen and examined. Chart reviewed. Case discussed with RN. Patient is newly transferred to 2700 unit, although he was no behavioral problem on the 2500 unit from which he came. On my examination today, the patient is exceedingly anxious, bordering on hysterical. It is difficult to get much of a meaningful history from the patient for this reason. Nonetheless, he is able to say he went into [facility] because he was struggling with ego dystonic intrusive thoughts to hurt nonspecific others. He denies any urge to hurt other people, nor does he have any specific victim in mind. No suicidal ideation. No AVH. Patient is somewhat dysphoric but I suspect this is situational. Past psychiatric history: Patient reports a prior diagnosis of bipolar disorder type II. He reports that he follows with Dr. Schreiber. He reports that he was voluntarily psychiatrically hospitalized in 2012. He denies a history of suicide attempts. Family history: Patient reports that his father struggled with depression throughout his life and completed suicide at age 72. His mother had bipolar illness. His sister also has some sort of mental illness diagnosis. Chemical dependency history: Patient denies a history of abuse of drugs or alcohol. Social history: Patient begins to say that he lives alone with a dog before devolving into a state of extreme anxiety related to his circumstance on the 2700 unit. It is difficult to get much in the way of meaningful social history for this reason. Tobacco Use In Past 30 Days: No Tobacco Past 30 Days Alcohol Use: Never Hospital Course Patient's initial suicidality vague perceptual molality slowly resolved with the addition of the Abilify to the antidepressant of a mood stabilizer. He continues somewhat somatic with passive-aggressive traits and dependent traits. Is showing some attachment to his female friend who came down from [place] to help him out though she is attempting to maintain appropriate boundaries with him and encouraging him to show independence. Patient suicidality slowly resolved the intensity of his anxiety softened. Is able to show some insight into his need to take control of his treatment and his affect. He has been compliant with his medications. Limited treatment team with him on 11/29 refilled his stable to go home with home health care and nursing to assist him with this. Along with his medication. He also has his own psychiatrist Dr. schreiber continues on individual therapist that issues chronically. Will also refer to the [place] support groups. He is willing to do this is able contracted to no harm and show compliance with medication and follow-up was patient to be discharged today with referrals as mentioned above Results Blood Pressure 124 / 70 Vital Signs Date Time Temp Pulse Resp B/P Pulse Ox O2 Delivery O2 Flow Rate FiO2 11/30/16 05:51 97.6 64 16 124/70 11/29/16 19:07 100 Laboratory Results Test 11/26/16 05:50 Valproic Acid (Depakene) Level 63 MCG/ML (50-100) Summary of Procedures None done Pending results at discharge: No Medications # of Antipsychotic meds at D/C: 1 Approp Antipsych med options 1 - Minimum of three failed multiple trials of monotherapy. 2 - Documented plan to taper to monotherapy due to previous use of multiple meds OR cross-taper in progress at D/C. 3 - Documentation of augmentation of Clozapine. 4 - Justification other than those listed in allowable values 1-3, document here : Discharge Discharge Date: Nov 30, 2016 Discharge Diagnosis: (1) Mood disorder ICD Code: F39 Mental Status Exam at Disch Alert oriented white male appears stated age stented common with me in [place], with floor staff, patient overall calm cooperative and oriented in all 4 spheres. He is normal active, his mood is euthymic, with some anxiety reflected in mild tremors at times affect shows slight increase range and intensity, speech regular within normal limits paranoia visual hallucinations no delusions noted and sent judgment is poor to fair cognition grossly intact Pt Condition on Discharge: Stable Discharge Disposition: Discharge Home Discharge Instructions Diet Instructions: As Tolerated, No Restrictions Activities you can perform: Regular-No Restrictions Scheduled Appointment: Dr. Schreiber Appointment Date: Dec 07, 2016 Appointment Time: 9:00am Discharge Time > 30 minutes Discharge/Advance Care Plan Health Problems: (1) Mood disorder Goals to promote your health * To prevent worsening of your condition and complications * To maintain your health at the optimal level Directions to meet your goals Take your medications as prescribed Follow your dietary instruction Follow activity as directed Keep your appointments as scheduled Take your immunizations and boosters as scheduled If your symptoms worsen call your PCP, if no PCP go to Urgent Care Center or Emergency Room For 06/06 questions related to your inpatient stay or results of tests pending at discharge, please contact Dr. Dada Novak at Smoking is Dangerous to Your Health. Avoid second hand smoking Dada Novak MD Nov 30, 2016 11:33
[2016-11-30] MEDS: hydrOXYzine HCL 50 MG TAB PO PRN (12:48)
== END 2016-11-30 16:40 | disposition home or self-care (01) | DRG 885 ==
LOC: H250 01:20 → H270 11-22 13:49 → H250 11-22 14:56 → H260 11-26 12:20
PROVIDERS: ADMIT Psychiatry & Neurology Psychiatry; ATTEND Psychiatry & Neurology Psychiatry
DX: F39 Unspecified mood [affective] disorder (principal); I10 Essential (primary) hypertension; R73.03 Prediabetes; K21.9 Gastro-esophageal reflux disease without esophagitis; Z85.828 Personal history of other malignant neoplasm of skin
CPT/HCPCS: 80048; 80061; 80164; 83036; Q0163